=== PATIENT | female | born 1945 | race Caucasian/White ===

== ENCOUNTER 2019-03-23 06:45 | Emergency (ER) | payer MEDICARE, BC ==
[2019-03-23] MEDS ORDERED: diphenhydrAMINE 50 MG/ML SDV IVPUSH ONE (07:03)
[2019-03-23] MEDS ORDERED: Famotidine 20 MG/2 ML SDV IVPUSH ONE (07:03)
[2019-03-23] MEDS ORDERED: Dexamethasone 10 MG/ML SDV IVPUSH ONE (07:03)
--- NOTE | 2019-03-23 07:05 | EDM.PDOC ---
ED HPI GENERAL MEDICAL PROBLEM - General Chief Complaint: Allergic Reaction Stated Complaint: allergic reaction to ibuprofen Time Seen by Provider: 03/23/19 06:58 Source of Information: Reports: Patient History Limitations: Reports: No Limitations - History of Present Illness INITIAL COMMENTS - FREE TEXT/NARRATIVE: 73 year old female presents to the ED with acute swelling under her eyes and both upper and lower lips and hoarse/raspy voice. She is battling a cold with nasal congestion and took some peptobismol plus about 0130hrs this am. Awoke around 0415 hrs with selling face and lips. No chest preasure or wheezing. Itching. few hives. Has been having urticaria off and on for the last 6 months of unkown cause. Allergy testing has not yielded any positives. There is aspirin in Peptobismol--unclear if the plus formulation contains Ibuprofen. Has taken to Zyrtec 10 mg strength tablets and to 10 mg strength prednisone tablets at about 0430 hrs. this morning without much relief. She states her tongue still feels thickened with some minor difficulty swallowing. Voice remains very hoarse. Lips are obviously very swollen on exam. Perhaps itching is somewhat better. Of note she has a confirmed allergy to ibuprofen. No recent changes to any of her other medications. Onset: Today Onset Date: 03/23/19 Onset Time: 15:00 Duration: Hour(s): Location: Reports: Face (Family affecting her face under eyelids are swollen both upper and lower lips are markedly swollen particularly the upper lip. Tongue is slightly thickened. The uvula or for the mouth appeared to be normal. Lungs are clear.) Quality: Reports: Other (Soft tissue swelling likely angioedema affecting the lips and soft tissues of the face.) Severity: Moderate Improves with: Reports: None Worsens with: Reports: None Context: Reports: Other. Denies: Activity, Exercise, Lifting, Sick Contact, Trauma Associated Symptoms: Reports: Cough, cough w sputum, Loss of Appetite, Malaise, Other (Hoarse raspy voice). Denies: Confusion, Chest Pain (Symptoms began after she took a dose of Pepto-Bismol at about 0130 hrs. this morning.), Diaphoresis, Fever/Chills, Headaches, Nausea/Vomiting, Rash, Seizure, Shortness of Breath Treatments MEDICAL DEVICE: Reports: Other (see below) (Pepto-Bismol about 0130 hrs. 20 mg of prednisone 0430 hrs. and Zyrtec 20 mg at 0430 hrs.) - Related Data Allergies Allergy/AdvReac Type Severity Reaction Status Date / Time aspirin Allergy Facial Verified 03/23/19 07:19 [From [place] Plus Swelling Cold/Cough] chlorpheniramine Allergy Facial Verified 03/23/19 07:19 [From [place] Plus Swelling Cold/Cough] dextromethorphan Allergy Facial Verified 03/23/19 07:19 [From [place] Plus Swelling Cold/Cough] ibuprofen Allergy Swelling Verified 03/23/19 06:52 phenylpropanolamine Allergy Facial Verified 03/23/19 07:19 [From [place] Plus Swelling Cold/Cough] Home Meds: Home Meds Cetirizine [ZyrTEC] 10 mg PO DAILY 03/23/19 [History] Fexofenadine HCl 180 mg PO DAILY 03/23/19 [History] Furosemide [Lasix] 20 mg PO DAILY 03/23/19 [History] Levothyroxine 112 mcg PO ACBREAKFAST 03/23/19 [History] Naltrexone 50 mg PO DAILY 03/23/19 [History] buPROPion [buPROPion XL] 300 mg PO DAILY 03/23/19 [History] predniSONE 20 mg PO BID #7 tab 03/23/19 [Rx] Past Medical History HEENT History: Reports: Impaired Vision Other HEENT History: Wear glasses [employer] History: Reports: Dermatologic History: Reports: Other (See Below) (Chronic urticaria of unclear etiology. 6 months) - Past Surgical History HEENT Surgical History: Reports: Tonsillectomy Female Surgical History: Reports: Section Musculoskeletal Surgical History: Reports: Other (See Below) Other Musculoskeletal Surgeries/Procedures:: bunionectomy, nerve in elbow Social & Family History - Living Situation & Occupation Living situation: Reports: Occupation: Employed ED ROS ALLERGIC REACTION - Review of Systems Review Of Systems: See Below Constitutional: Reports: Malaise, Weakness, Fatigue. Denies: Fever, Chills HEENT: Reports: Glasses, Rhinitis, Sinus Problem, Throat Swelling. Denies: Dental Pain, Ear Pain, Eye Discharge, Nose Pain, Throat Pain Respiratory: Reports: Cough, Other. Denies: Wheezing, Pleuritic Chest Pain Cardiovascular: Reports: Chest Pain. Denies: Blood Pressure Problem, Dyspnea on Exertion, Edema, Lightheadedness Endocrine: Reports: Fatigue GI/Abdominal: Reports: Other (Mild GERD.) Musculoskeletal: Reports: No Symptoms Skin: Reports: No Symptoms, Other (Generalized pruritus. Urticaria a few lesions neck. Angioedema affecting facial structures and soft tissues around the eyes both upper and lower lips and tongue) Neurological: Reports: No Symptoms Psychiatric: Reports: No Symptoms Hematologic/Lymphatic: Reports: No Symptoms Immunologic: Reports: No Symptoms ED EXAM GENERAL NO PERIP PULSE - Physical Exam Exam: See Below Exam Limited By: No Limitations General Appearance: Alert, WD/WN, Mild Distress, Other (She has obvious swelling of her upper lip. Swelling soft tissues around her eyes. No obvious urticaria at this time.) Eye Exam: Bilateral Eye: Normal Inspection, Periorbital Changes (Soft tissue swelling around the upper and lower eyelids), PERRL Ears: Normal TMs Nose: Normal Inspection Throat/Mouth: Other (Marked swelling of the upper lip and moderate swelling lower lip with thickening of the tissue. Tongue is about 2 times normal size.). No: Normal Lips, Normal Teeth, Normal Voice (voice is raspy and hoarse.) Head: Atraumatic, Normocephalic (There is no swelling of the uvula or for the mouth.) Neck: Normal Inspection, Supple, Non-Tender, Full Range of Motion. No: Lymphadenopathy (L), Lymphadenopathy (R) Respiratory/Chest: Lungs Clear, Normal Breath Sounds, Chest Non-Tender Cardiovascular: Normal Peripheral Pulses, Regular Rate, Rhythm, No Edema, No Gallop, No Murmur, No Rub GI/Abdominal: Normal Bowel Sounds, Soft, Non-Tender, No Distention, No Abnormal Bruit Extremities: Normal Inspection, Normal Range of Motion, Non-Tender Neurological: Alert, Oriented, CN II-XII Intact, Normal Cognition Psychiatric: Anxious Skin Exam: Warm (Mildly anxious.), Dry, Intact, Normal Color, No Rash Course - Vital Signs Last Recorded V/S: Last Vital Signs Temp 35.8 C 03/23/19 06:52 Pulse 74 03/23/19 06:52 Resp 18 03/23/19 06:52 BP 134/64 03/23/19 06:52 Pulse Ox 96 03/23/19 06:52 - Orders/Labs/Meds Orders: Active Orders 24 hr Category Date Time Status Sodium Chloride 0.9% [Normal Saline] 1,000 ml Med 03/23/19 07:15 Active IV ASDIRECTED Medication Orders Sodium Chloride (Normal Saline) 1,000 mls @ 500 mls/hr IV ASDIRECTED ROMERO Last Admin: 03/23/19 07:11 Dose: 500 mls/hr Meds: Medications Generic Name Dose Route Start Last Admin Trade Name Freq PRN Reason Stop Dose Admin Sodium Chloride 1,000 mls @ 500 mls/hr 03/23/19 07:15 03/23/19 07:11 Normal Saline IV 500 mls/hr ASDIRECTED ROMERO Administration Discontinued Medications Generic Name Dose Route Start Last Admin Trade Name Freq PRN Reason Stop Dose Admin Dexamethasone 8 mg 03/23/19 07:03 03/23/19 07:11 Dexamethasone IVPUSH 03/23/19 07:04 8 mg ONETIME ONE Administration Diphenhydramine HCl 25 mg 03/23/19 07:03 03/23/19 07:11 Benadryl IVPUSH 03/23/19 07:04 25 mg ONETIME ONE Administration Famotidine 20 mg 03/23/19 07:03 03/23/19 07:11 Pepcid IVPUSH 03/23/19 07:04 20 mg ONETIME ONE Administration - Radiology Interpretation Free Text/Narrative:: 73-year-old female presents to the ED with an acute allergic reaction mostly angioedema involving the soft tissues of both upper and lower lip particularly the upper lip and periorbital tissues. There is some swelling of the tongue as well. For the mouth is perhaps a minimally edematous. The uvula is normal. There was no respiratory compromise. At present she is very little peripheral itching or no evidence of urticaria identified. She states the itching is better since she took the Zyrtec 20 mg tablet 0430 hrs. She notes she has an allergy to ibuprofen and I suspect Pepto-Bismol contains primarily aspirin. They cross-react quite often. Plan IV normal saline at 500 mils per hour. Will be given dexamethasone 8 mg IV with Pepcid 20 mg IV and Benadryl 25 mg IV. - Re-Assessments/Exams Free Text/Narrative Re-Assessment/Exam: 03/23/19 07:50: Swelling is starting to go down particular her lips. She denies any pruritus. She is quite drowsy from the effect of the Benadryl. Will review her in about 20 minutes. 03/23/19 08:23 Swelling of the lips is nearly normal. No pruritus. She'll be discharged to home. Will use Benadryl 50 mg every 6 hours as needed for recurrence of swelling or itch. Prednisone 20 mg twice daily for the next 3 days including dose at suppertime tonight. Follow up in the ED or in the clinic if any further symptoms develop or she is not better in 3 days time. Of course advised no further use of Pepto-Bismol ever as it appears she is allergic to aspirin component Departure - Departure Time of Disposition: 08:22 Disposition: Home, Self-Care 01 Condition: Fair Clinical Impression: Viral upper respiratory tract infection with cough Angioedema of lips Qualifiers: Encounter type: initial encounter Qualified Code(s): T78.3XXA - Angioneurotic edema, initial encounter - Discharge Information *PRESCRIPTION DRUG MONITORING PROGRAM REVIEWED*: Not Applicable *COPY OF PRESCRIPTION DRUG MONITORING REPORT IN PATIENT AVIS: Not Applicable Prescriptions: predniSONE 20 mg PO BID #7 tab Instructions: Angioedema, [id number], Allergies, Adult, [id number] Referrals: Marialuisa Joyce CNA [Primary Care Provider] - Forms: ED Department Discharge Additional Instructions: Evaluation the emergency room today in regards to suspect drug allergy with development of angioedema which means soft tissue swelling of the tissues of the face particularly involving the upper and lower lip some of the tissue around her eyes and some swelling of the tongue and floor the mouth appreciated on exam. This seemed to be precipitated by taking a dose of Pepto-Bismol about 0130 hrs. this morning with symptoms development 3 hours later. No one allergy to Motrin and Pepto-Bismol does contain aspirin. I'm not sure what the plus component of Pepto-Bismol is but it may mean a higher dose of the aspirin component. You are treated in the ED with additional steroid dexamethasone IV 8 mg Pepcid 20 mg IV and Benadryl 25 mg IV to blunt the allergic response. He would already taken Zyrtec 20 mg at home which takes a bit longer to work and 20 mg of prednisone. Suggest using Benadryl 50 mg every 6 hours needed for recurrence of any swelling or pruritus or hives development today. Suggest use of prednisone 20 mg twice daily for the next 3 days with breakfast and supper. Next dose would be due at suppertime tonight. Of course no further use of Pepto- Bismol ever in the future. Return to the ED if further problems develop such difficulty swallowing or breathing. - My Orders Last 24 Hours: My Active Orders 03/23/19 07:15 Sodium Chloride 0.9% [Normal Saline] 1,000 ml IV ASDIRECTED - Assessment/Plan Last 24 Hours: My Active Orders 03/23/19 07:15 Sodium Chloride 0.9% [Normal Saline] 1,000 ml IV ASDIRECTED
[2019-03-23] MEDS ORDERED: Sodium Chloride 0.9% 1,000 ML IV SCH (07:15)
== END 2019-03-23 08:31 | disposition home or self-care (01) ==
LOC: JD.ED 06:45
DX: T78.3XXA Angioneurotic edema, initial encounter (principal); J06.9 Acute upper respiratory infection, unspecified; Z88.6 Allergy status to analgesic agent; Z88.8 Allergy status to other drugs, medicaments and biological substances
CPT/HCPCS: 96361; 96374; 96375; 99283; J1100; J1200; J3490; J7040